=== PATIENT | female | born 1955 | race Caucasian/White ===

== ENCOUNTER 2019-05-02 22:09 | Emergency (ER) | payer OTHER ==
[~2019-05-02] VITALS: Ht 154.9 cm; Wt 63.5 kg
[2019-05-02 22:23] VITALS: Ht 154.9 cm; Wt 63.5 kg
[2019-05-03 00:47] VITALS: BP 121/67
== END 2019-05-03 00:47 | disposition home or self-care (01) ==
LOC: ED 22:09
DX: G43.909 Migraine, unspecified, not intractable, without status migrainosus (principal); R11.2 Nausea with vomiting, unspecified; E78.00 Pure hypercholesterolemia, unspecified; Z88.0 Allergy status to penicillin
CPT/HCPCS: J2060; J2765; J7030

== ENCOUNTER 2019-06-17 23:26 | Emergency (ER) | payer OTHER ==
[~2019-06-17] VITALS: Ht 157.5 cm; Wt 65.8 kg
[2019-06-17 23:47] VITALS: Ht 157.5 cm; Wt 65.8 kg
[2019-06-18 01:50] LABS: UA SPECIFIC GRAVITY <=1.005 (1.005-1.035); microscopic required? YES; urine erythrocyte 3+ (NEGATIVE)
[2019-06-18 02:38] VITALS: BP 136/68
== END 2019-06-18 02:38 | disposition home or self-care (01) ==
LOC: ED 23:26
PROVIDERS: Emergency Medicine
DX: N39.0 Urinary tract infection, site not specified (principal); G43.909 Migraine, unspecified, not intractable, without status migrainosus; E78.00 Pure hypercholesterolemia, unspecified; Z88.0 Allergy status to penicillin